=== PATIENT | female | born 1960 | race Two or more races ===

== ENCOUNTER 2017-07-23 20:25 | Emergency (ER) | payer OTHER ==
[~2017-07-23] VITALS: Ht 170.2 cm; Wt 81.6 kg
[2017-07-23 20:38] VITALS: BP 144/61
== END 2017-07-23 22:55 | disposition home or self-care (01) ==
LOC: ER 20:25
DX: S82.402A Unspecified fracture of shaft of left fibula, initial encounter for closed fracture (principal); I10 Essential (primary) hypertension; E11.9 Type 2 diabetes mellitus without complications; X50.1XXA Overexertion from prolonged static or awkward postures, initial encounter; Y93.01 Activity, walking, marching and hiking; Y99.8 Other external cause status; Y92.481 Parking lot as the place of occurrence of the external cause
CPT/HCPCS: 29515; 73610